=== PATIENT | female | born 1985 | race Caucasian/White ===

== ENCOUNTER 2018-08-16 12:20 | Emergency (ER) | payer OTHER ==
[~2018-08-16] VITALS: Ht 170.2 cm; Wt 63.0 kg
[2018-08-16 12:30] VITALS: BP 134/87
[2018-08-16] MEDS ORDERED: ONDA4TAB9 PO (13:17)
[2018-08-16] MEDS ORDERED: LORA1TAB PO (13:17)
== END 2018-08-16 13:30 | disposition home or self-care (01) ==
LOC: ER 12:20
DX: F10.239 Alcohol dependence with withdrawal, unspecified (principal); Z88.8 Allergy status to other drugs, medicaments and biological substances; Z79.899 Other long term (current) drug therapy; Y90.9 Presence of alcohol in blood, level not specified
CPT/HCPCS: 99283